=== PATIENT | male | born 1940 | race Caucasian/White ===

== ENCOUNTER 2023-05-27 15:09 | Emergency (ER) | payer OTHER, SELFPAY ==
[2023-05-27 15:16] VITALS: BP 150/73
[2023-05-27 15:32] LABS: % Basophils 0.4 % (0-2); % Eosinophils 2.7 % (0-6); % Immature Granulocytes 0.4 % (0-0.5); % Lymphocytes 22.3 % (20.5-51.1); % Monocytes 6.5 % (1.7-9.3); % Neutrophils 67.7 % (42.2-75.2); Absolute Eosinophils 0.2 10^3/uL (0-0.7); Absolute Lymphocytes 1.7 10^3/uL (1.2-3.4); Absolute Monocytes 0.5 10^3/uL (0.1-0.6); Absolute Neutrophils 5.2 10^3/uL (1.4-6.5); Hematocrit 38.1 % (39.0-52.0); Hemoglobin 12.7 g/dL (13.0-18.0); Mean Corp Hgb Conc. 33.3 g/dL (33.0-37.0); Mean Corpuscular Hgb 31.7 pg (27.0-31.0); Mean Platelet Volume 9.6 fL (7.4-10.4); Nucleated Red Blood Cells % 0 % (-); Platelet Count 207 10^3/uL (130-400); Red Blood Cell Count 4.01 10^6/uL (4.70-6.10); Red Cell Dist. Width 14.5 % (11.5-14.5); White Blood Cell Count 7.7 10^3/uL (4.8-10.8)
[2023-05-27 15:56] LABS: ALT (SGPT) 24 U/L (0-50); AST (SGOT) 32 U/L (17-59); Albumin 3.9 g/dl (3.5-5.0); Alkaline Phosphatase 64 U/L (38-126); Blood Urea Nitrogen 19 mg/dl (9-20); Calcium 9.9 mg/dl (8.4-10.2); Carbon Dioxide 31 mmol/L (22-30); Chloride 105 mmol/L (98-107); Glucose 113 mg/dl (70-99); Potassium 4.4 mmol/L (3.5-5.1); Sodium 136 mmol/L (135-145); Total Bilirubin 0.6 mg/dl (0.2-1.3); Total Protein 6.5 g/dl (6.3-8.2); eGFR > 60.00
[2023-05-27 16:09] LABS: Troponin I < 0.012 ng/ml
--- NOTE | 2023-05-27 17:26 | ED.GENMED ---
History of Present Illness
General
Chief Complaint: Chest Problem
Source: patient
Exam Limitations: none
Time Seen by Provider: 05/27/23 17:06
Nursing documentation reviewed up to this point in time: agreed with
Travel History
Have you had any contact with someone who has COVID-19?: No
Do you have any symptoms of coronavirus? Fever > 100 degrees, chills, cough, shortness of breath, sore throat, loss of taste or smell, muscle aches, or headache?: No
History of Present Illness
History of Present Illness:
Patient to ED with complaint of LUQ abdominal pain radiating to back. States pain is worse with movement. Hx of pleural effusion in past and state pain is the same. Denies fever/chills, n/v/d. Taking alleve with some improvement although med
upsets his stomach. Brought to ED by spouse for eval.
Past History
Past History
ED Past Medical History: CAD, HTN, Hypercholesterolemia and Other (RA)
ED Past Surgical History: Cardiac (triple bypass 2020) and Other
Social History
Tobacco: Non-smoker
Alcohol: None
Personal:
Living: with family
Employment: Retired
Family History
Family History: Negative Early CAD
Review of Systems
Review of Systems
Allergies reviewed?: Yes
All Other Systems: ROS reviewed and negative except as documented in HPI and ROS
Constitutional: Reports no symptoms
EENT: Reports no symptoms
Respiratory: Reports no symptoms
Cardiac: Reports no symptoms
ABD/GI: Reports abdominal pain (LUQ pain)
: Reports no symptoms
Musculoskeletal: Reports back pain (left middle back pain)
Skin: Reports no symptoms
Neurological: Reports no symptoms
Psychiatric: Reports no symptoms
Phy Exam
General Physical Exam
General Presentation: well appearing and no apparent distress
General age: appears stated age
General Skin: warm and dry
General Habitus: normal
Cardiovascular Exam
Cardiovascular Exam: regular rate/rhythm and no edema
Pulmonary Exam
Pulmonary Exam: no respiratory distress and chest non tender
Breath Sounds: Crackles: left lower and right lower
Gastrointestinal Exam
Gastrointestinal Exam: normal bowel sounds, non tender, soft, no organomegaly, no pulsatile mass, non distended and cva tenderness (mild left)
Musculoskeletal Exam
Musculoskeletal Exam: full ROM and neuro vasc intact
Skin Exam
Skin Exam: normal color, warm/dry and no rash
Psychiatric Exam
Psychiatric Exam: normal mood/affect
Course
Orders/Labs/Results
Orders:
Orders
05/27/23 15:20
ECG [Electrocardiogram (*1)] Urgent
Reason for Study: Other
Other Reason for Exam: L rib pain
EKG- Treatment ONCE
05/27/23 15:27
Complete Blood Count/With Diff Urgent
Comprehensive Metabolic Panel Urgent
Troponin I Urgent
05/27/23 17:25
CR Chest - 2 Views Urgent
Comment:
Reason For Exam: left chest pain
05/27/23 17:37
Urinalysis Reflex To Culture Urgent
Date Specimen was Collected: 05/27/23
Time Specimen was Collected: 17:35
Urine Microscopic Reflex Cult Urgent
Urine Culture Urgent
ZHANG Source: U
Specimen Description:
Date Specimen was Collected: 05/27/23
Time Specimen was Collected: 17:35
05/27/23 19:02
CT Abd/pel Without Iv Or Oral Urgent
Comment:
Reason For Exam: Left flank pain
05/27/23 21:24
Cephalexin Monohydrate [Keflex] 500 mg PO NOW STA
Abnormal Lab Results
05/27/23 05/27/23
15:27 17:37
RBC 4.01 L 10^6/uL
(4.70-6.10)
Hgb 12.7 L g/dL
(13.0-18.0)
Hct 38.1 L %
(39.0-52.0)
MCV 95.0 H fL
(80.0-94.0)
MCH 31.7 H pg
(27.0-31.0)
Carbon Dioxide 31 H mmol/L
(22-30)
Glucose 113 H mg/dl
(70-99)
Leukocyte Esterase Rfl 1+ A
(Negative)
Urine WBC (Reflex) 11-15 A /HPF
(0-5)
Urine Bacteria (Reflex) Moderate A
(Negative)
05/27/23 15:27
05/27/23 15:27
Vital Signs
Initial and Last Documented VS:
Initial Vital Signs
Temp Pulse Resp BP Pulse Ox
97.7 F 63 20 150/73 97
05/27/23 15:16 05/27/23 15:16 05/27/23 15:16 05/27/23 15:16 05/27/23 15:16
Last Documented Vital Signs
Temp Pulse Resp BP Pulse Ox
98.1 F 65 18 148/71 96
05/27/23 19:58 05/27/23 19:58 05/27/23 19:58 05/27/23 19:58 05/27/23 19:58
*Radiology
Radiology exam reviewed: radiology read reviewed
*Pulse Oximetry
Patient hypoxic: no
*Critical Care Note
Total Time (30-74mins, 75-104mins- exclusive of procedures): Not Applicable
ED Attending Note
-
Portions of this chart may have been created with voice recognition software.� Occasional wrong word or��sound alike� substitutions may have occurred due to the inherent limitations of voice recognition software.
Discharge Plan
Departure
Patient Disposition: Home (Routine Discharge)
Date of Disposition: 05/27/23
Time of Disposition: 21:17
Patient with high blood pressure during this ER visit?: No
Condition: Good
Covid-19: Not Applicable
Discharge Problem:
Flank pain, Urinary tract infection
Instructions: Urinary Tract Infection, Adult ED, Flank Pain ED
Prescriptions:
New
cephalexin 500 mg capsule
500 mg PO Q6H 7 Days Qty: 28 0RF
No Action
multivitamin 1 EACH tablet
1 ea PO DAILY
aspirin 81 MG tablet,chewable
81 mg PO DAILY
qjydugbu-otnsp-dkm 2-C-D3-saul [Oqhedymh-Egsfbf-OQT with vit D] 1 EACH tablet
2 ea PO DAILY
amino acids-whey prot conc,iso [Whey Protein] 907 GM powder
907 gm PO DAILY
curcumin (bulk) 10 GM powder
1,000 gm PO DAILY
nitroglycerin 0.4 MG tablet, sublingual
0.4 mg sublingual Q5MPRN PRN (Reason: chest pain) Qty: 25 2RF
Rx Instructions:
one tablet under tongue every 5 min x3 as needed for chest pain. If no relief, please call 911
folic acid 0.8 MG capsule
1,600 mcg PO DAILY
calcium phosphate-vitamin D3 1 EACH tablet,chewable
2 ea PO DAILY
acetaminophen 325 MG tablet
650 mg PO Q4HPRN PRN (Reason: mild pain,headache,temp >101F ) 0RF
cholecalciferol (vitamin D3) 1,000 UNITS tablet
1,000 units PO DAILY 0RF
atorvastatin 40 MG tablet
40 mg PO DAILY
metoprolol succinate [Toprol XL] 25 MG tablet extended release 24 hr
25 mg PO DAILY
methotrexate sodium 2.5 MG tablet
20 mg PO SA Qty: 0 0RF
Patient Comments:
Saturdays
Referrals:
Josh Bejarano MD [Family Provider] - Follow up in 2-3 days
Interventions
Interventions:
*Risk Screen - Suicide Last Done: 05/27/23 20:58
*General Assessment Last Done: 05/27/23 20:58
*Neglect/Abuse Screening Last Done: 05/27/23 20:58
ED- Fall Risk Assessment Last Done: 05/27/23 20:58
*ED COVID-19 Vaccine History Last Done: 05/27/23 15:16
*Nursing Disposition Last Done: 05/27/23 21:54
ED- Cardiac Assessment Last Done: 05/27/23 19:02
ED- Pulmonary Assessment Last Done: 05/27/23 19:02
Discharge Date and Time
Discharge Date/Time: 05/27/23 21:54
[2023-05-27 18:34] LABS: Urine Albumin Negative (Neg - Trace); Urine Bilirubin Negative (Negative); Urine Character Clear (Clear); Urine Color Yellow; Urine Glucose Negative (Negative); Urine Ketone Negative (Negative); Urine Leukocyte 1+ (Negative); Urine Nitrite Negative (Negative); Urine Occult Blood Negative (Negative); Urine Specific Gravity 1.015 (<1.030); Urine Urobilinogen Negative (Neg - 1+)
[2023-05-27 18:46] LABS: Urine Red Blood Cell 0-2 /HPF (0-2)
[2023-05-27 18:47] LABS: Urine Bacteria Moderate (Negative)
[2023-05-27 19:58] VITALS: BP 148/71
[2023-05-27] MEDS: KEFLEX 500 MG PO (21:52)
== END 2023-05-27 21:54 | disposition home or self-care (01) ==
LOC: EMR 15:09
PROVIDERS: Emergency Medicine; Nurse Practitioner; EMERGENCY PHYSICIAN Emergency Medicine; FAMILY PHYSICIAN Family Medicine
DX: R10.12 Left upper quadrant pain (principal); N39.0 Urinary tract infection, site not specified; B19.20 Unspecified viral hepatitis C without hepatic coma; E78.00 Pure hypercholesterolemia, unspecified; I10 Essential (primary) hypertension; I25.10 Atherosclerotic heart disease of native coronary artery without angina pectoris; Z95.1 Presence of aortocoronary bypass graft
CPT/HCPCS: 99284; 71046; 74176; 80053; 81003; 81015; 84484; 85025; 87086; 93005

== ENCOUNTER → 2024-03-24 09:05 | Outpatient (REF) | payer OTHER, SELFPAY | LOC: RCS 09:05 | PROVIDERS: ATTENDING PHYSICIAN Internal Medicine Cardiovascular Disease; FAMILY PHYSICIAN Family Medicine | DX: I35.0 Nonrheumatic aortic (valve) stenosis (principal) | CPT/HCPCS: 93306 ==